=== PATIENT | female | born 1995 | race Caucasian/White ===

== ENCOUNTER 2018-08-10 17:10 | Emergency (ER) | payer MEDICARE ==
[~2018-08-10] VITALS: Ht 162.6 cm; Wt 62.7 kg
[2018-08-10 17:25] VITALS: BP 129/72
[2018-08-10 20:00] LABS: BASOPHILS % (AUTO) 0.5 % (0.0-2.0); EOSINOPHILS # (AUTO) 0.1 K/uL (0-0.4); EOSINOPHILS % (AUTO) 1.2 % (0.0-4.0); HEMATOCRIT 39.4 % (36-48); HEMOGLOBIN 12.2 g/dL (12.0-16.0); LYMPHOCYTES # (AUTO) 2.3 K/uL (2.5-16.5); LYMPHOCYTES % (AUTO) 23.9 % (20.5-51.1); MEAN CORPUSCULAR HEMOGLOBIN 24 pg (27-31); MEAN CORPUSCULAR HGB CONC 31 g/dL (33-37); MEAN CORPUSCULAR VOLUME 77.4 fL (80-94); MONOCYTES # (AUTO) 0.6 K/uL (0.8-1.0); MONOCYTES % (AUTO) 6.1 % (1.7-9.3); NEUTROPHILS # (AUTO) 6.5 K/uL (1.8-7.7); NEUTROPHILS % (AUTO) 68.3 % (42.2-75.2); PLATELET COUNT (AUTO) 294 K/uL (140-450); RED BLOOD CELL COUNT(AUTO) 5.09 MIL/uL (4.20-5.40); RED CELL DISTRIBUTION WIDTH 15.6 % (11.6-13.7); WHITE BLOOD COUNT (AUTO) 9.4 K/uL (4.5-11.0)
[2018-08-10 20:08] LABS: ANION GAP 11.6 (8-16); CARBON DIOXIDE 28.4 mmol/L (21-32); CREATININE 0.6 mg/dL (0.6-1.3)
[2018-08-10 20:14] LABS: ALBUMIN 4.4 g/dL (3.4-5.0); TOTAL BILIRUBIN 0.2 mg/dL (0.0-1.0)
[2018-08-10 20:22] LABS: CREATINE KINASE MB 0.1 ng/mL (0-3.6)
[2018-08-10 21:30] VITALS: BP 118/69
== END 2018-08-10 21:30 | disposition home or self-care (01) ==
LOC: MED 17:10
DX: R07.89 Other chest pain (principal); R00.2 Palpitations
CPT/HCPCS: 36415; 71045; 80053; 81002; 81025; 82550; 82553; 83690; 84484; 85025; 85379; 93005; 99284; Q0092

== ENCOUNTER 2019-09-06 17:18 | Emergency (ER) | payer MEDICAID, MEDICARE ==
[~2019-09-06] VITALS: Ht 160 cm; Wt 58.1 kg
[2019-09-06 17:36] VITALS: BP 126/71
--- NOTE | 2019-09-06 17:39 | NUR ---
urine cup handed to pt for sample
--- NOTE | 2019-09-06 17:46 | NUR ---
pt ambulated to bed with family/friend
--- NOTE | 2019-09-06 17:49 | NUR ---
c/o worsening left lower back pain x 2 days----denies recent injury or dysuria pain increases with certain movements.Pt awake ,alert,afebrile denies n/v. ambulatory with steady gait hx--denies rx---none
--- NOTE | 2019-09-06 18:03 | NUR ---
anderson case informed of preg test and dip stick test.
--- NOTE | 2019-09-06 18:39 | NUR ---
[facility] AT BEDSIDE EVALUATING PT.
[2019-09-06] MEDS ORDERED: KETOROLAC 60 MG/2 ML VIAL IM ONE (18:40)
[2019-09-06 19:04] VITALS: BP 126/71
--- NOTE | 2019-09-06 19:04 | NUR ---
Patient discharged with v/s stable. Written and verbal after care instructions given and explained regarding back pain. Patient alert, oriented and verbalized understanding of instructions. Ambulatory with steady gait. All questions addressed prior to discharge. ID band removed. Patient advised to follow up with PMD. Rx of ibuprofen and flexeril given. Patient educated on indication of medication including possible reaction and side effects. Opportunity to ask questions provided and answered.
== END 2019-09-06 19:04 | disposition home or self-care (01) ==
LOC: MED 17:18
DX: S39.012A Strain of muscle, fascia and tendon of lower back, initial encounter (principal); X58.XXXA Exposure to other specified factors, initial encounter; Y92.89 Other specified places as the place of occurrence of the external cause; Y93.89 Activity, other specified; Y99.8 Other external cause status
CPT/HCPCS: 81002; 81025; 96372; 99283; J1885

== ENCOUNTER 2024-06-05 12:25 | Emergency (ER) | payer MEDICAID, OTHER ==
[~2024-06-05] VITALS: Ht 160 cm; Wt 59.9 kg
[2024-06-05 13:03] VITALS: BP 123/90; PULSE 94; RESP 16; TEMP 98.1; O2SAT 100
[2024-06-05 14:31] LABS: BILIRUBIN,URINE NEGATIVE (NEGATIVE); BLOOD, URINE TRACE-I (NEGATIVE); COLOR,URINE YELLOW (YELLOW); LEUKOCYTE ESTERASE ,URINE 2+ (NEGATIVE); NITRITE, URINE NEGATIVE (NEGATIVE); PH,URINE 6.5 (5.0-9.0); PROTEIN,URINE TRACE (NEGATIVE); UGLUCOSE TRACE (NEGATIVE); UROBILINOGEN,URINE 0.2 EU/dL (0.2 - 1)
[2024-06-05 14:35] LABS: APPEARANCE,URINE HAZY (CLEAR)
[2024-06-05 14:53] LABS: RBC,URINE 0-5 /HPF (0-5); WBC,URINE 80-100 /HPF (0-5)
[2024-06-05 14:54] LABS: BACTERIA,URINE 3+ /HPF (None Seen); SQUAMOUS EPITHELIAL CELL,UR 4-10 (MOD) /LPF (0-3 (FEW))
[2024-06-05] MEDS ORDERED: CEPH-588 PO (16:14)
== END 2024-06-05 16:28 | disposition home or self-care (01) ==
LOC: MED 12:25
DX: N39.0 Urinary tract infection, site not specified (principal); N89.8 Other specified noninflammatory disorders of vagina; Z79.899 Other long term (current) drug therapy
CPT/HCPCS: 36415; 81001; 81025; 87086; 87529; 99284